=== PATIENT | female | born 1985 | race Caucasian/White ===

== ENCOUNTER 2019-05-24 13:20 | Observation (INO) ==
[2019-05-24] MEDS ORDERED: LACTATED RINGERS 1,000 ML IV ONE (14:06)
[2019-05-24 14:15] LABS: Basophils # 0.1 10*3/uL (0.0-0.2); Basophils % 0.4 % (0.0-0.8); Eosinophils % 0.2 % (0.00-10.9); Hematocrit 36.7 VOL% (35.7-47.0); Hemoglobin 13.5 GM/DL (12.0-16.0); Immature Granulocytes % 0.5 %; Immature Granulocytes Absolute 0.07 #; Lymphocytes # 3.2 10*3/uL (1.4-4.0); Lymphocytes % 23.8 % (21.3-54.2); Mean Corpuscular HGB Conc 36.8 GM/DL (32-36); Mean Platelet Volume 9.8 FL (9.6-12.0); Monocytes % 12.1 % (1.7-12.7); Platelet Count 287 T/CUMM (130-400); Red Blood Count 3.53 MC/CUMM (3.8-5.5); Red Cell Distribution Width 14.2 % (9.3-17.3); White Blood Count 13.3 T/CUMM (4-12)
[2019-05-24 14:36] LABS: Albumin 3.4 G/DL (3.4-5.0); Bilirubin,Total 2.6 MG/DL (0.2-1.0); Calcium 8.5 MG/DL (8.5-10.1); Osmolality,Calculated 259.7 MOS/KG (273-304); Total Protein 7.2 G/DL (6.4-8.3)
[2019-05-24] MEDS ORDERED: POTASSIUM CHLORIDE 20 MEQ TABLET PO STA (14:41)
[2019-05-24] MEDS ORDERED: ONDANSETRON 4 MG/2 ML VIAL IV ONE (14:59)
[2019-05-24 15:27] LABS: Apearance,Urine Slightly Hazy (Clear); Bacteria,Urine Moderate /HPF (Few); Blood, Urine Negative (Negative); Glucose,Urine (UA) Negative (Negative); Hyaline Casts,Urine 15 /LPF (0-3); Ketones,Urine 5 mg/dL (Negative); Mucus,Urine Many /LPF (Occasional); Nitrite,Urine Positive (Negative); Protein,Urine 100 MG/DL; Squamous Epithelial Cell,Urine Many /HPF (0-10); Urine Color Amber (Yellow); Urine Specific Gravity 1.026 (1.001-1.035); WBC,Urine 21 /HPF (0-6)
[2019-05-24 15:28] LABS: Barbiturates Screen,Urine Positive (Negative); Benzodiazepines Screen,Urine Positive (Negative); Cannabinoid Screen,Urine Negative (Negative); Opiate Screen,Urine Positive (Negative); Phencyclidine Screen,Urine Negative (Negative)
[2019-05-24 15:31] LABS: Bilirubin,Urine Moderate mg/dL (Negative)
[2019-05-24] MEDS ORDERED: cefTRIAXone 1,000 MG in SODIUM CHLORIDE 0.9% 100 ML IV STA (15:48)
[2019-05-24] MEDS ORDERED: LACTATED RINGERS 1,700 ML IV ONE (16:59)
[2019-05-24] MEDS ORDERED: ACETAMINOPHEN 325 MG TABLET PO PRN (17:44)
[2019-05-24] MEDS ORDERED: PROMETHAZINE 25 MG/1 ML VIAL IM PRN (17:44)
[2019-05-24] MEDS ORDERED: ONDANSETRON 4 MG/2 ML VIAL IV PRN (17:44)
[2019-05-24] MEDS ORDERED: THIAMINE 100 MG TABLET PO ONE (18:01)
[2019-05-24 18:20] LABS: Folate 4.1 NG/ML (5.4-24.0)
[2019-05-24 19:02] LABS: Hepatitis B Surface Ag Quant < 0.10 Index; Hepatitis B Surface Ag Result Negative (Negative); Hepatitis C Virus Ab Quant 0.09 Index; Hepatitis C Virus Ab Result Negative (Negative)
[2019-05-24] MEDS: SODIUM CHLOR 0.9% KCL 40 MEQ 40 MEQ/1,000 ML BAG IV SCH (21:58)
[2019-05-24] MEDS: lamoTRIgine 25 MG TABLET PO SCH (22:00)
[2019-05-24] MEDS: QUEtiapine 100 MG TABLET PO SCH (22:00)
[2019-05-24] MEDS: PIPERACILLIN/TAZOBACTAM 3,375 MG in SODIUM CHLORIDE 0.9% 100 ML IV SCH (22:00)
[2019-05-24] MEDS: busPIRone 10 MG TABLET PO SCH (22:00)
[2019-05-24] MEDS: chlordiazePOXIDE 25 MG CAPSULE PO SCH (22:01)
[2019-05-24] MEDS: HEPARIN 5,000 UNIT/1 ML VIAL SUBCUT SCH (22:02)
[2019-05-24] MEDS: NICOTINE 21 MG/24 HR PATCH TRANSDERM PRN (22:02)
[2019-05-25 06:04] LABS: Basophils # 0.1 10*3/uL (0.0-0.2); Basophils % 0.5 % (0.0-0.8); Eosinophils # 0.2 10*3/uL (0.0-0.87); Eosinophils % 1.5 % (0.00-10.9); Hematocrit 30.6 VOL% (35.7-47.0); Immature Granulocytes % 0.5 %; Immature Granulocytes Absolute 0.05 #; Lymphocytes # 4.5 10*3/uL (1.4-4.0); Mean Corpuscular HGB Conc 35.6 GM/DL (32-36); Mean Corpuscular Volume 108.1 FL (87-102); Mean Platelet Volume 10.3 FL (9.6-12.0); Monocytes % 10.8 % (1.7-12.7); Neutrophils % 40.7 % (38.7-73.9); Platelet Count 232 T/CUMM (130-400); Red Blood Count 2.83 MC/CUMM (3.8-5.5); Red Cell Distribution Width 14.7 % (9.3-17.3); White Blood Count 9.9 T/CUMM (4-12)
[2019-05-25 06:14] LABS: Risk Ratio 10.17; VLDL CHOLESTEROL 38.8 MG/DL
[2019-05-25 06:15] LABS: Albumin 2.4 G/DL (3.4-5.0); Bilirubin,Total 2.3 MG/DL (0.2-1.0); Calcium 7.3 MG/DL (8.5-10.1); Osmolality,Calculated 272.7 MOS/KG (273-304); Total Protein 5.1 G/DL (6.4-8.3)
[2019-05-25 06:16] LABS: Hemoglobin 10.9 GM/DL (12.0-16.0)
[2019-05-25] MEDS ORDERED: POTASSIUM CHLORIDE 20 MEQ TABLET PO ONE (06:57)
[2019-05-25] MEDS ORDERED: MAGNESIUM SULF RIDER 2 GM in PREMIX 1 EACH IV PRN (07:45)
[2019-05-25] MEDS ORDERED: MAGNESIUM SULF RIDER 4 GM in PREMIX 1 EACH IV PRN (07:45)
[2019-05-25] MEDS: chlordiazePOXIDE 25 MG CAPSULE PO SCH ×3 (07:52→21:48)
[2019-05-25] MEDS: PIPERACILLIN/TAZOBACTAM 3,375 MG in SODIUM CHLORIDE 0.9% 100 ML IV SCH ×3 (07:53→21:45)
[2019-05-25] MEDS: HEPARIN 5,000 UNIT/1 ML VIAL SUBCUT SCH ×3 (07:54→21:48)
[2019-05-25] MEDS: LISINOPRIL 20 MG TABLET PO SCH (08:06)
[2019-05-25] MEDS: MULTIVITAMIN (CENTRUM) TABLET PO SCH (08:07)
[2019-05-25] MEDS: THIAMINE 100 MG TABLET PO SCH (08:08)
[2019-05-25] MEDS: FOLIC ACID 1 MG TABLET PO SCH (08:08)
[2019-05-25] MEDS: PANTOPRAZOLE 40 MG TABLET PO SCH (08:08)
[2019-05-25] MEDS: ESCITALOPRAM 10 MG TABLET PO SCH (08:08)
[2019-05-25] MEDS: busPIRone 10 MG TABLET PO SCH ×3 (08:08→20:26)
[2019-05-25] MEDS: lamoTRIgine 25 MG TABLET PO SCH ×2 (08:08→20:27)
[2019-05-25] MEDS: POTASSIUM CHLORIDE RIDER 10 MEQ in PREMIX 1 EACH IV PRN ×6 (08:08→23:04)
[2019-05-25] MEDS: SODIUM CHLOR 0.9% KCL 40 MEQ 40 MEQ/1,000 ML BAG IV SCH (11:48)
[2019-05-25] MEDS: QUEtiapine 100 MG TABLET PO SCH (20:27)
[2019-05-25] MEDS: NICOTINE 21 MG/24 HR PATCH TRANSDERM PRN (20:28)
[2019-05-26] MEDS: POTASSIUM CHLORIDE RIDER 10 MEQ in PREMIX 1 EACH IV PRN (01:51)
[2019-05-26] MEDS: chlordiazePOXIDE 25 MG CAPSULE PO SCH (06:10)
[2019-05-26] MEDS: PIPERACILLIN/TAZOBACTAM 3,375 MG in SODIUM CHLORIDE 0.9% 100 ML IV SCH (06:11)
[2019-05-26] MEDS: HEPARIN 5,000 UNIT/1 ML VIAL SUBCUT SCH (06:15)
[2019-05-26 06:31] LABS: Basophils # 0.1 10*3/uL (0.0-0.2); Basophils % 0.7 % (0.0-0.8); Eosinophils # 0.1 10*3/uL (0.0-0.87); Eosinophils % 1.6 % (0.00-10.9); Hematocrit 30.5 VOL% (35.7-47.0); Hemoglobin 10.4 GM/DL (12.0-16.0); Immature Granulocytes % 0.7 %; Immature Granulocytes Absolute 0.06 #; Lymphocytes # 3.1 10*3/uL (1.4-4.0); Lymphocytes % 35.2 % (21.3-54.2); Mean Corpuscular HGB Conc 34.1 GM/DL (32-36); Mean Corpuscular Volume 113.4 FL (87-102); Mean Platelet Volume 9.7 FL (9.6-12.0); Monocytes % 10.3 % (1.7-12.7); NRBC # 0.02 10*3/uL; Neutrophils % 51.5 % (38.7-73.9); Platelet Count 272 T/CUMM (130-400); Red Blood Count 2.69 MC/CUMM (3.8-5.5); Red Cell Distribution Width 15.9 % (9.3-17.3); White Blood Count 8.8 T/CUMM (4-12)
[2019-05-26 06:55] LABS: Platelet Estimate Normal; Target Cells Few
[2019-05-26 06:56] LABS: Hypochromasia 1+; Microcytosis 1+
[2019-05-26 07:04] LABS: Albumin 2.3 G/DL (3.4-5.0); Bilirubin,Total 1.7 MG/DL (0.2-1.0); Calcium 7.7 MG/DL (8.5-10.1); Osmolality,Calculated 277.3 MOS/KG (273-304); Total Protein 5.1 G/DL (6.4-8.3)
[2019-05-26] MEDS: LISINOPRIL 20 MG TABLET PO SCH (08:38)
[2019-05-26] MEDS: ESCITALOPRAM 10 MG TABLET PO SCH (08:38)
[2019-05-26] MEDS: FOLIC ACID 1 MG TABLET PO SCH (08:38)
[2019-05-26] MEDS: MULTIVITAMIN (CENTRUM) TABLET PO SCH (08:38)
[2019-05-26] MEDS: busPIRone 10 MG TABLET PO SCH (08:38)
[2019-05-26] MEDS: lamoTRIgine 25 MG TABLET PO SCH (08:39)
[2019-05-26] MEDS: PANTOPRAZOLE 40 MG TABLET PO SCH (08:39)
[2019-05-26] MEDS: THIAMINE 100 MG TABLET PO SCH (08:39)
[2019-05-26 10:18] VITALS: BP 116/71
== END 2019-05-26 10:57 | disposition home or self-care (01) ==
LOC: N.ED 13:20 → N.EDINP 13:20 → N.5E 18:18
PROVIDERS: ADMIT Internal Medicine; ATTEND Internal Medicine